=== PATIENT | male | born 1955 | race Caucasian/White ===

== ENCOUNTER 2017-04-07 15:32 | Outpatient (RCR) | payer BC ==
[2016-01-30 15:13] VITALS: Ht 188 cm; Wt 109.8 kg
[2017-03-30 15:10] VITALS: BP 123/75
[2017-03-30 16:03] LABS: PLATELET COUNT, AUTOMATED 103 K/uL (150-450)
[~2017-04-07] VITALS: Ht 188 cm; Wt 109.8 kg
[~2017-04-07 15:32] MED LIST: ALTEPLASE RECOMB 2 MG VIAL IVP PRN; DEXTROSE 5%(*) 100 ML BAG 100 ML IVPB PRN; DOCU-202 PO; ENO100I SC; HEPARIN FLSH (PORT) 500 UN/5ML IVP PRN; LEVO750T27 PO; LEVO750T44 PO; LIDOCAINE/SOD BICARB 8.4% SYR ID PRN; LORA-1455 PO; METR-159 PO; NS(*) 0.9% 100 ML BAG 100 ML IVPB PRN; NS(*) 0.9% 500 ML BAG 500 ML IV PRN; ONDA8TAB94 PO; PER PO; PRED50TA22 PO; WARF-12 PO; WATER STERILE 10 ML VIAL IVP PRN
[2017-04-07 15:44] VITALS: BP 122/74
--- NOTE | 2017-04-07 16:05 | ONC Progress Note - NP.Halsey ---
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 He states he feels well in general and is back to normal activity. He is trying to eat a high-protein diet. He denies any bowel or bladder changes, no pain in the abdomen. He denies fever, chills, night sweats or weight loss. He has no acute concerns today. Problem List (1) B-cell lymphoma of intra-abdominal lymph nodes (2) Thrombocytopenia Oncology History Patient is a 61-year-old male who presented to urgent care clinic with dry heaves and vomiting. He had a CT of abdomen and pelvis done on September 20, 2015, which showed dilated 1.9 cm appendix, keeping with acute appendicitis. There was a ring-enhancing abscess in the central mesentery measuring 4.6 cm. There was also enlarged mesenteric central lymph node measuring 3.7 cm. He had a repeat CT of the abdomen and pelvis done on September 23, 2015 and again it showed distended appendix containing appendicolith, fluid and air bubbles, consistent with acute appendicitis. There were multiple mesenteric lymph nodes with 3.7 cm mesenteric mass, which could represent an infected lymph node, although metastatic disease is not excluded. Repeat CT scan done on October 02, 2015 of the abdomen and pelvis showed the polylobulated 3.7 cm mass in the left of the midline, which may represent an atypical lymph node, but this, however, not changed in size. His repeat CT scan of abdomen and pelvis done on January 15, 2016 showed that the intraperitoneal soft tissue mass is now measuring 5.2 cm in diameter. The patient ended by having exploratory laparotomy with excision of a mesenteric mass done on January 29, 2016 and pathology came back positive for diffuse large B cell non-Hodgkin lymphoma, germinal center type. 2D echocardiogram showed normal left ventricular ejection fraction at 66%. PET- CT scan done on February 17, 2016 did not show any disease or increased activity by PET scan. The prior lobular left mesenteric mass is no longer seen. There were several non-enlarged lymph nodes along the mesenteric root, and they are not FDG avid. Spleen is borderline enlarged, but not FDG avid. Bone marrow aspiration biopsy done on February 19, 2016 came back negative for lymphomatous involvement. The patient started chemotherapy with R-CHOP on March 19, 2016 and completed six cycles of R-CHOP on July 02, 2016. Most recent CT of the abdomen and pelvis completed on 11/26/2016 remain stable from previous. Mesenteric mass is no longer seen. Infiltrative changes in the mesenteric fat are similar to prior examination. Small mesenteric lymph nodes remain stable. Fat stranding around the prostate gland appears to be similar to prior examination. Bilateral inguinal hernias remain stable. Hepatobiliary is negative. Medical History Past Medical History Hypercholesterolemia, not on medication. Past Surgical History 1. Appendectomy done on October 16, 2015 and diagnosis was acute suppurative appendicitis by pathology. 2. Exploratory laparotomy with resection of mesenteric mass done on January 29, 2016. Family History: FH: emphysema MOTHER, , Age:75 FH: thyroid condition MOTHER, , Age:75 Psychosocial History Social History SOCIAL HISTORY The patient is with two sons. 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 He never smoked. He occasionally drinks beer. He denies any abuse of illicit drugs. Smoking History: No Smoking Status: Never Smoker Exposure to Second Hand Smoke?: No Medications and Allergies No Active Prescriptions or Reported Meds Allergies: Coded Allergies: Penicillins (Verified Allergy, Mild, RASH, 01/26/16) Review of System/Physical Exam Review of Systems Constitutional: Denies Appetite/Weight Change, Denies Fever/Chills/Sweating, Denies Recent Infection, Denies Other Cardiovascular: Denies Chest Pain, Denies Orthopnea, Denies Edema, Denies Palpitations, Denies Other Respiratory: Denies Cough, Denies Expectoration, Denies Hemoptysis, Denies Shortness of Breath, Denies Wheezing, Denies Other HEENT: No Tinnitus, No Hearing Problems, No Epistaxis, No Nasal Discharge, No Sore Throat, No Mouth Ulcers, No Other Gastrointestinal: No Nausea, No Vomitting, No Diarrhea, No Constipation, No Heart Burn, No Swallowing Difficulties, No Abdominal Pain, No Other Genitourinary: Denies Hematuria, Denies Dysuria, Denies Nocturia, Denies Other Endocrine: Denies Diabetes, Denies Hot Flashes, Denies Thyroid Issues, Denies Enlarged Lymph Nodes, Denies Other Hematologic: Denies Bruising, Denies Bleeding, Denies Fatigue, Denies Weakness , Denies Other Musculoskeletal: Denies Muscle Pain, Denies Joint Pain, Denies Bone Pain, Denies Other Neurologic: Numbness of Hands (mild and intermittent), Tingling of Hands (mild and intermittent), No Headaches, No Numbness of Feet, No Tingling of Feet, No Convulsions, No Other Psychiatric: No Anxiety, No Depression, No Other Skin: Denies Skin Rash, Denies Lumps, Denies Erythema, Denies Dry Skin, Denies Moist Skin, Denies Other Physical Exam Vital Signs Temperature: 98.5 Pulse: 103 BP Systolic: 123 BP Diastolic: 75 Respiratory Rate: 16 O2 SAT: 93 O2 Delivery: Height (inches) 74.00 Weight lb: 225 Weight oz: Weight Kg (Ric): Pain: 0 General: Stable, Well Developed, Well Nourished, Not In Acute Distress, Not Other HEENT: No Trauma, No Conjunctivitis, No Icterus, No Mucositis, No Oral Thrush, No Sinus Tenderness, No Other Neck: Supple, No Thyromegaly, No Other Lungs: Clear to Auscultation, Not Other Heart: Regular Rate, Regular Rhythm, No Gallops, No Murmurs Abdomen: Soft and Nontender, No Hepatosplenomegaly, No Masses Extremities: No Cyanosis, No Clubbing, No Edema, No Other Lymphadenopathy: No None, No Cervical, No Subclavicular, No Axillary, No Peripheral, No Femoral, No Other Psychiatric: Mood appears normal, Affect appears normal Skin: Skin Rashes, No Bruising, No Purpura, No Moist Desquamation, No Dry Desquamation, No Erythema, No Mild Erythema, No Moderate Erythema, No Severe Erythema, No Induration, No Other Other Port noted in the left upper chest. Diagnostic Studies Diagnostic Studies Laboratory Laboratory Tests 03/30/17 15:15 Laboratory Tests 03/30/17 15:15: White Blood Count 3.3, Red Blood Count 4.67, Hemoglobin 15.8, Hematocrit 44.3, Mean Corpuscular Volume 94.9, Mean Corpuscular Hemoglobin 33.7, Mean Corpuscular Hemoglobin Concent 35.6, Red Cell Distribution Width 14.4, Platelet Count 103, Mean Platelet Volume 8.5, Neutrophils (%) (Auto) 52.1, Lymphocytes (% ) (Auto) 20.5, Monocytes (%) (Auto) 24.7, Eosinophils (%) (Auto) 1.9, Basophils (%) (Auto) 0.8, Nucleated RBC Relative Count (auto) 0.8, Neutrophils # (Auto) 1.7, Lymphocytes # (Auto) 0.7, Monocytes # (Auto) 0.8, Eosinophils # (Auto) 0.1 , Basophils # (Auto) 0.0, Nucleated RBC Absolute Count (auto) 0.03, Peripheral Blood Smear Yes, Sodium Level 138, Potassium Level 3.8, Chloride Level 104, Carbon Dioxide Level 24, Blood Urea Nitrogen 15, Creatinine 1.00, Glomerular Filtration Rate Calc > 60.0, Random Glucose 83, Uric Acid 6.8, Calcium Level 9.0 , Total Bilirubin 1.2, Aspartate Amino Transf (AST/SGOT) 31, Alanine Aminotransferase (ALT/SGPT) 44, Alkaline Phosphatase 62, Lactate Dehydrogenase 463, Total Protein 6.6, Albumin 4.0 Assessment and Plan Assessment & Plan 1. Diffuse large B cell non-Hodgkin lymphoma of the mesenteric lymph nodes, status post excisional resection of the mesenteric mass done January 29, 2016. PET/CT scan did not show any increased uptake, as the mesenteric mass was resected and there was not any avid FDG activity in the PET scan. Bone marrow aspiration biopsy was negative for lymphomatous involvement. Hepatitis serology for hepatitis C and B was negative and left ventricular ejection fraction by 2D echocardiogram was normal at 66%. The patient received six cycles of R-CHOP( rituximab, Adriamycin, cyclophosphamide, vincristine and prednisone) between March 19, 2016 through July 02, 2016. CT of chest, abdomen and pelvis done July 30, 2016 after he finished his chemotherapy did reveal unchanged mesenteric lymph nodes, the largest 1.4 cm with borderline splenomegaly. PET/ CT scan for further evaluation done on August 21, 2016 did not show any abnormal activity in the PET scan, meaning that the patient achieved complete remission. Most recent CT scan on 11/26/2016 showed resolution of mesenteric mass and stable small mesenteric lymph nodes. Platelet count is 103,000 today, which is stable. He is doing well clinically and has no evidence of recurrent disease. He will retrun to the clinic for follow up in 4 months with CBC, CMP and LDH. He will have a repeat CT scan of C/A/P with IV contrast before next visit. He will flush port every 6 weeks. 2. Thrombocytopenia. This is mild, chronic ad intermittent and it could be autoimmune. Given mild grade of thrombocytopenia observation is adequate. 3. Hyperbilirubinemia. Of unknown significant. Total bilirubin is normal today. 4. Hypercholesterolemia, on treatment. PLAN 1. Continue surveillance. 2. Patient to return to the office for follow up in 4 months with CBC, CMP and LDH. 3. Port flushes every 4 [address] scan C/A/P before next visit. 5. Patient to contact the office for any problems or concerns. I personally spent a total of 25 minutes. Of that 15 minutes was counseling/ coordination of patient's care. See my note above for details. JACE DALEY MD Apr 07, 2017 16:01
== END 2017-05-27 09:11 | disposition home or self-care (01) ==
LOC: ONC 15:32
PROVIDERS: ATTEND Internal Medicine Hematology
DX: Z85.72 Personal history of non-Hodgkin lymphomas (principal); Z92.21 Personal history of antineoplastic chemotherapy; D69.6 Thrombocytopenia, unspecified; E80.6 Other disorders of bilirubin metabolism; E78.00 Pure hypercholesterolemia, unspecified
CPT/HCPCS: 36591; 82040; 82247; 82310; 82374; 82435; 82565; 82947; 83615; 84075; 84132; 84155; 84295; 84450; 84460; 84520; 84550; 85025; 99212

== ENCOUNTER 2017-08-12 10:00 | Outpatient (RCR) | payer BC ==
[2016-01-30 15:13] VITALS: Wt 113.3 kg
[2017-06-03] MEDS: LIDOCAINE/SOD BICARB 8.4% SYR ID PRN (15:06)
[2017-06-03] MEDS: HEPARIN FLSH (PORT) 500 UN/5ML IVP PRN (15:06)
[2017-08-05 12:10] VITALS: BP 125/74
[2017-08-05 12:35] LABS: PLATELET COUNT, AUTOMATED 122 K/uL (150-450)
[2017-08-05] MEDS: LIDOCAINE/SOD BICARB 8.4% SYR ID PRN (13:00)
[2017-08-05] MEDS: HEPARIN FLSH (PORT) 500 UN/5ML IVP PRN (14:52)
--- NOTE | 2017-08-05 15:07 | RADIOLOGY IMAGING REPORT ---
FACILITY: [facility] [place]IENT NAME: López Monae : 1955 MR: [id number] V: [id number] EXAM DATE: ORDERING PHYSICIAN: JEROME PINZON TECHNOLOGIST: [facility] Patient: López Monae : 1955 Visit/Account:[id number] Date of Sevice: 08/05/2017 CHEST/AB/PELV W/CONTRAST HISTORY: B-cell lymphoma follow-up ADDITIONAL HISTORY: None. TECHNIQUE: Contiguous axial images acquired through the chest abdomen and pelvis with IV contrast. C oronal and sagittal reformatting was also performed. Dose Lowering Technique One of the following dose optimization techniques was utilized in the performance of this exam: Autom ated exposure control; adjustment of the mA and/or kV according to the patient's size; or use of an i terative reconstruction technique. Specific details can be referenced in the facility's radiology C T exam operational policy. Contrast: 100 mL of Isovue-370 COMPARISON: CT abdomen pelvis November 26, [address] chest abdomen and pelvis July 30, 2016 November 26, 2016 FINDINGS: CHEST: Lungs/Pleura: There is a small amount of pleural parenchymal scarring lateral aspect right upper lob e unchanged when compared the prior study. Mild by basilar scarring also unchanged Mediastinum/lymph nodes: Small nonspecific mediastinal and hilar lymph nodes remain unchanged. Heart/vessels: Negative. Bones/soft tissues: Negative ABDOMEN AND PELVIS: Hepatobiliary: Negative. Spleen: Spleen is slightly decreased in size now measuring 4.5 x 13.1 x 12.2 cm as opposed to 5 x 13 .5 x 12.5 cm Pancreas: Negative. Adrenals: Negative. Kidneys ureters and bladder : Left renal cyst unchanged Genitalia: Negative. GI: Mild diverticulosis of the left-sided colon although no CT evidence of acute diverticulitis Vessels/spaces/nodes: There is an umbilical hernia containing a knuckle of nonobstructed small bowel . There is a left inguinal hernia containing nonobstructed sigmoid colon and right inguinal hernia c ontaining fat. Haziness around the root of the mesentery is unchanged.. Lymph nodes along the superior mesenteric vascular pedicle are also unchanged. A medical collections representative ly mph node measures 1.3 x 1 cm similar to the prior study. A medical collections representative aortocaval lymph node travsi ures 10 by 8 mm similar to the prior study as well Bones/soft tissues: No aggressive appearing bone lesions are seen. There are spondylotic changes se en throughout the thoracolumbar spine Additional findings: None pertinent. IMPRESSION: Spleen is slightly decreased in size when compared the prior study now measuring 13.1 x 12.2 x 4.5 cm as opposed to 13.5 x 12.5 x 5 cm. Stable mesenteric and aortocaval lymph nodes Small mediastinal and hilar lymph nodes have remained stable Umbilical hernia containing a knuckle of nonobstructed small bowel Left inguinal hernia containing nonobstructed sigmoid colon Right inguinal hernia containing fat. Additional chronic findings as described above Report Dictated By: Linda Spence MD at 08/05/2017 2:00 PM Report E-Signed By: Linda Spence MD at 08/05/2017 3:03 PM WSN:[id number]
[~2017-08-12 10:00] MED LIST changes: -HEPARIN FLSH (PORT) 500 UN/5ML IVP PRN; +IOPAMIDOL 76% 100 ML INFUS BTL 100 ML ONE; -LIDOCAINE/SOD BICARB 8.4% SYR ID PRN; +NS 0.9% 150 ML BAG 150 ML ONE
[2017-08-12 10:01] VITALS: BP 135/75
--- NOTE | 2017-08-12 16:50 | ONCOLOGY FOLLOW UP NOTE ---
EVENT DATE: August 12, 2017 DIAGNOSES 1. Diffuse large B cell non-Hodgkin lymphoma of mesenteric mass of mesenteric lymph nodes. 2. Hypercholesterolemia. CHIEF COMPLAINT The patient is here today for followup of his diffuse large B cell non-Hodgkin lymphoma of the mesenteric lymph nodes. ONCOLOGY HISTORY The patient is a 61-year-old male who presented recently with dry heaves and vomiting, and the patient was seen by Urgent Care, who referred him to the emergency department. He had a CT of abdomen and pelvis done on September 20, 2015, which showed dilated 1.9 cm appendix, keeping with acute appendicitis. There was a ring-enhancing abscess in the central mesentery measuring 4.6 cm. There was also enlarged mesenteric central lymph node measuring 3.7 cm. He had a repeat CT of the abdomen and pelvis done on September 23, 2015 and again it showed distended appendix containing appendicolith, fluid and air bubbles, consistent with acute appendicitis. There were multiple mesenteric lymph nodes with 3.7 cm mesenteric mass, which could represent an infected lymph node, although metastatic disease is not excluded. Repeat CT scan done on October 02, 2015 of the abdomen and pelvis showed the polylobulated 3.7 cm mass in the left of the midline, which may represent an atypical lymph node, but this, however, not changed in size. His repeat CT scan of abdomen and pelvis done on January 15, 2016 showed that the intraperitoneal soft tissue mass is now measuring 5.2 cm in diameter. The patient ended by having exploratory laparotomy with excision of a mesenteric mass done on January 29, 2016 and pathology came back positive for diffuse large B cell non-Hodgkin lymphoma, germinal center type. 2D echocardiogram showed normal left ventricular ejection fraction at 66%. PET- CT scan done on February 17, 2016 did not show any disease or increased activity by PET scan. The prior lobular left mesenteric mass is no longer seen. There were several non-enlarged lymph nodes along the mesenteric root, and they are not FDG avid. Spleen is borderline enlarged, but not FDG avid. Bone marrow aspiration biopsy done on February 19, 2016 came back negative for lymphomatous involvement. The patient started chemotherapy with R-CHOP on March 19, 2016. The patient completed six cycles of R-CHOP on July 02, 2016. HISTORY OF PRESENT ILLNESS The patient is here today for followup of his diffuse large B cell lymphoma of the mesenteric lymph nodes. Patient is doing very well currently and he is totally asymptomatic. PAST MEDICAL HISTORY Hypercholesterolemia, not on medication. PAST SURGICAL HISTORY 1. Appendectomy done on October 16, 2015 and diagnosis was acute suppurative appendicitis by pathology. 2. Exploratory laparotomy with resection of mesenteric mass done on January 29, 2016. FAMILY HISTORY Negative for cancer or blood diseases. SOCIAL HISTORY The patient is with two sons. 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 He never smoked. He occasionally drinks beer. He denies any abuse of illicit drugs. CURRENT MEDICATIONS 1. Zofran 8 mg orally disintegrating tablets q.8h. p.r.n. for nausea and vomiting. 2. Compazine 10 mg q.6h. p.r.n. for nausea and vomiting. 3. Ativan 1 mg q.6h. p.r.n. for nausea and vomiting. 4. Protonix 40 mg daily. ALLERGIES PENICILLIN, which causes hives. REVIEW OF SYSTEMS CONSTITUTIONAL: No appetite or weight change. No fever, chills or sweating. No recent infection. HEENT: Ears: No tinnitus or hearing problem. Nose: No nasal discharge or epistaxis. Throat: No sore throat or mouth ulcers. Eyes: No diplopia or visual changes. RESPIRATORY: No shortness of breath. No cough, expectoration or hemoptysis. CARDIOVASCULAR: No chest pain, orthopnea, or paroxysmal nocturnal dyspnea (PND) . No edema. No palpitations. GASTROINTESTINAL: No nausea or vomiting. No diarrhea or constipation. No change in bowel movements. No heartburn or swallowing difficulties. No abdominal pain. No jaundice. No hematemesis, melena or rectal bleeding. GENITOURINARY: No hematuria or dysuria. MUSCULOSKELETAL: No pain in the muscles, joints or bones. NEUROLOGICAL: No tingling or numbness in the hands or feet. No headaches or convulsions. HEMATOLOGIC/LYMPHATIC: No bleeding or easy bruising. No weakness or fatigue. No enlarged lymph nodes. SKIN: No skin rash or lumps. PSYCHIATRIC: No anxiety or depression. PHYSICAL EXAMINATION GENERAL: Looks stable. Well-developed, well-nourished, and in no acute distress. VITAL SIGNS: Blood pressure 135/75, pulse 58 per minute, respirations 16 per minute, temperature 96.1, pulse oximetry 97% on room air. HEENT: Head: Atraumatic. No sinus tenderness to palpation. Eyes: No icterus or conjunctivitis. Mouth and throat: No oral thrush or mucositis. NECK: Supple. No cervical or supraclavicular lymphadenopathy. LUNGS: Clear to auscultation and percussion bilaterally. HEART: Regular rate and rhythm. No gallops, murmurs, clicks or rubs. ABDOMEN: Soft and lax. The scar of recent surgery is noted. EXTREMITIES: No cyanosis, clubbing or edema. LYMPHATICS: No peripheral lymphadenopathy. NEUROLOGICAL: Conscious, alert and oriented times three. No focal motor or sensory deficits. PSYCHIATRIC: Mood and affect appear normal. SKIN: No skin rash, bruise or purpuric eruption. DIAGNOSTIC DATA CBC showed white count 6.8, hemoglobin 17.2, hematocrit 48%, platelets 122,000. Chem panel was totally normal. CT chest, abdomen and pelvis showed stable lymph node without any progression. ASSESSMENT 1. Diffuse large B cell non-Hodgkin lymphoma of the mesenteric lymph nodes, status post excisional resection of the mesenteric mass done January 29, 2016. PET/CT scan did not show any increased uptake, as the mesenteric mass was already resected and there was not any avid activity in the PET scan. Bone marrow aspiration biopsy was negative for lymphomatous involvement. Hepatitis serology for hepatitis C and B came back negative and left ventricular ejection fraction by echocardiogram was normal at 66%. The patient received six cycles of R-CHOP with rituximab, Adriamycin, cyclophosphamide, vincristine and prednisone between March 19, 2016 through July 02, 2016. CT of chest, abdomen and pelvis done July 30, 2016 after chemotherapy showed nonsignificant lymph nodes up to 1.4 cm, which are mesenteric lymph nodes. PET/CT scan August 21, 2016 did not show any abnormal activity in the PET scan. CT chest, abdomen and pelvis done recently, July 2017 showed stable lymph nodes without any progression. I believe the patient is currently in complete remission. I am planning to continue followup. I will see him again in three months with CBC, chem panel, LDH and uric acid. 2. Hypercholesterolemia on treatment. PLAN 1. Continue followup. 2. Patient to return in three months with CBC, chem panel, LDH, uric acid. 3. Patient to contact us for any new concerns or complaints. DUNG
== END 2017-09-01 ==
LOC: ONC 10:00
PROVIDERS: ATTEND Internal Medicine Hematology
DX: Z85.72 Personal history of non-Hodgkin lymphomas (principal); E78.00 Pure hypercholesterolemia, unspecified; Z92.21 Personal history of antineoplastic chemotherapy
CPT/HCPCS: 36591; 71260; 74177; 83615; 84153; 85025; 96523; 99212; J1642; Q9967; 82040; 82247; 82310; 82374; 82435; 82565; 82947; 84075; 84132; 84155; 84295; 84450; 84460; 84520

== ENCOUNTER 2017-11-04 10:02 | Outpatient (RCR) | payer BC ==
[2016-01-30 15:13] VITALS: BMI 28.4
[~2017-11-04 10:02] MED LIST changes: +HEPARIN FLSH (PORT) 500 UN/5ML IVP PRN; -IOPAMIDOL 76% 100 ML INFUS BTL 100 ML ONE; +LIDOCAINE/SOD BICARB 8.4% SYR ID PRN; -NS 0.9% 150 ML BAG 150 ML ONE; +WATER FOR INJ,STERILE 20 ML IVP PRN; -WATER STERILE 10 ML VIAL IVP PRN
[2017-11-04 10:43] LABS: PLATELET COUNT, AUTOMATED 110 K/uL (150-450)
[2017-11-04 13:15] VITALS: BP 136/84
--- NOTE | 2017-11-04 17:46 | Oncology Progress Note ---
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 Oncology History Oncology History: on September 20, 2015,CT of abdomen and pelvis done which showed dilated 1.9 cm appendix, keeping with acute appendicitis. There was a ring-enhancing abscess in the central mesentery measuring 4.6 cm. There was also enlarged mesenteric central lymph node measuring 3.7 cm. He had a repeat CT of the abdomen and pelvis done on September 23, 2015 and again it showed distended appendix containing appendicolith, fluid and air bubbles, consistent with acute appendicitis. There were multiple mesenteric lymph nodes with 3.7 cm mesenteric mass, which could represent an infected lymph node, although metastatic disease is not excluded. Repeat CT scan done on October 02, 2015 of the abdomen and pelvis showed the polylobulated 3.7 cm mass in the left of the midline, which may represent an atypical lymph node, but this, however, not changed in size. His repeat CT scan of abdomen and pelvis done on January 15, 2016 showed that the intraperitoneal soft tissue mass is now measuring 5.2 cm in diameter. The patient ended by having exploratory laparotomy with excision of a mesenteric mass done on January 29, 2016 and pathology came back positive for diffuse large B cell non-Hodgkin lymphoma, germinal center type. - Bone marrow aspiration biopsy done on February 19, 2016 came back negative for lymphomatous involvement. Treatment Treatment: on 07/02/2016. [facility] - March 19, 2016. R-CHOP Cycle #1 - 04/19/2016 R-CHOP Cycle #2. - 04/30/16 R-CHOP, cycle #3. - 05/27/16 R-CHOP. cyycle #4. - 06/11/16 R-CHOP. cycle #5. -07/02/16 R-CHOP cycle 6 -08/06/16 PET-CT scan. - PET-CT scan done on August 19, 2016 did not show any evidence of abnormal hypermetabolism. - 08/26/16 The patient to return in three months with CBC, chem panel, LDH, uric acid and CT of abdomen and pelvis with IV and oral contrast. Plan: four to six cycles of R-CHOP with rituximab, Adriamycin, cyclophosphamide, Vincristine and prednisone. With Neulasta 6mg SC after eac cycle. HPI HPI: Mr. Dov Dawn is a 62-year-old male who presents here today for his follow-up management surveillance for diffuse Large B-cell non-Hodgkin lymphoma of the mesenteric lymph nodes. Bone marrow aspiration biopsy done on February 19, 2016 came back negative for lymphomatous involvement. s/p completion 6 cycles RCHOP on 07/02/2016 with minor toxicities. - PET-CT scan done on August 19, 2016 did not show any evidence of abnormal hypermetabolism. Patient has since then been on active surveillnce every 3 months with no symptoms of disease presentation. He reports being in his usual state of health. He is doing very well and reports no issues. Denies any fevers, chills, night sweats, palpable Lymph nodes or tender nodes. No N/V. no changes in bowel or bladder pattern. Living Conditions: Lives with . [facility] Patient History: FH: emphysema MOTHER, , Age:75 FH: thyroid condition MOTHER, , Age:75 Social/Occupational History Social History: Social History This is a 62 Yr old White male, he is M and has [] Children Hx Smoking: No Smoking Status: Never Smoker Exposure to Second Hand Smoke?: No Allergies & Medications Allergies: Coded Allergies: Penicillins (Verified Allergy, Mild, RASH, 01/26/16) Home Meds No Active Prescriptions or Reported Meds Review of Systems Constitution: Positive for Fever/Chills/Sweating, Positive for Recent Infection HEENT: NOSE: Nasal Discharge, THROAT: Sore Throat, OTHER Respiratory: No Cough, No Expectoration, No Hemoptysis, No Shortness of Breath , No OTHER Cardiovascular: No Chest Pain, No Orthopnea, No Edema, No Palpitations, No OTHER Gastrointestinal: No Nausea, No Vomitting, No Diarrehea, No Constipation, No Heart Burn, No Swallowing Difficulties, No Abdominal Pain, No Other Gentiourinary: No Hematuria, No Dysuria, No Nocturia, No Other Musculoskeletal: No Muscle Pain, No Joint Pain, No Bone Pain, No Other Hematological: No Bleeding, No Weakness, No Enlarged Lyph Nodes, No Bruising, No Fatigue, No Other Skin: No Skin Rash, No Lumps, No Erythema, No Dry Skin, No Moist Skin, No Other Psychiatric: No Anxiety, No Depression, No Other Vital Signs Vital Signs Temperature: 96.1 Pulse: 58 BP Systolic: 135 BP Diastolic: 75 Respiratory Rate: 16 O2 SAT: 97 O2 Delivery: Height (feet) 6 Height (inches) 74.00 Weight lb: 225 Weight oz: Weight Kg (Ric): Pain: 0 Physical Exam General: Looks Stable, Well Developed, Well Nourished, Other HEENT: HEAD:Atraumatic Neck: Supple Lungs: Clear to Auscultation Heart: Regular Rate and Rhythm Abdomen: Soft and Nontender Extremities: No Cyanosis, No Clubbing, No Edema, No Other Lymphatics: No Peripheral Lymphadenopathy, No Other Psychiatric: Mood appears normal, Affect appears normal Skin: No Skin Rashes, No Bruising, No Purpura, No Moist Desquamation, No Dry Desquamation, No Errythema, No Mild Errythema, No Moderate Errythema, No Severe Errythema, No Induration, No Other Breast: No No Masses, No No Nipple Discharge, No No Skin Changes, No Other Assessment and Plan Assessment and Plan: 1. Diffuse large B cell non-Hodgkin lymphoma of the mesenteric lymph nodes, status post excisional resection of the mesenteric mass done January 29, 2016. PET/CT scan did not show any increased uptake, as the mesenteric mass was already resected and there was not any avid activity in the PET scan. Bone marrow aspiration biopsy was negative for lymphomatous involvement. s/p completion 6 cycles RCHOP on 07/02/2016 with minor toxicities. 2. Thrombocytopenia, Platet count today is 110K. Denies bleeding, no easy bruising. no headaches. dalton contine to monitor counts closely. Instrcuted to call clinic or go to ER if any active bleeding, easy bruising immediately. 3. Preventive: PSA 11/04/17 is 1.10; 08/05/17 is 0.93; 11/26/16 is 0.89. PSA slighty trending up. Will contnue to monitor closely encouraged to f/u with PCP. CHRONIC 2. Hypercholesterolemia on treatment 3. Hx DVT of Left Lower extremity in 2008. Reports no pain, no swelling. He keeps active working regular shift, and exercises 3-4 times per day. encourage to contne wearing Compression stockings and to move and do leg exercises while he is on aeroplane or long car travels. PLAN 1. Continue followup. 2. Patient to return in three months with CBC, chem panel, LDH, uric acid. 3. Patieent Instructed to contact MD/DEISY if any long trips planned involving long periods of sedentary status. 4. Patient enocurage to contact PCP or Dr. Fuentes in regards to colonoscopy, he never had one at 62years. He informs me that he has had enogh PEt scans. 5. Patient to contact us for any new concerns or complaints. TIME SPENT: 15minutes 10 > minutes includes but not limited to discussion, counselling and co-ordination~ of care. Discussion with other health care providers, record review, review of lab work, diagnostic tests. Plan discussed extensively with patient. All the questions answered today. Thank you for the opportunity to be involved in the care of Mr. Dov Dawn Billing Level: Return visit 3 CC Copies to: JEROME PINZON MD-GERALDO LAL, ONC Nov 04, 2017 09:13
== END 2017-12-02 09:57 | disposition home or self-care (01) ==
LOC: SPU 10:02
PROVIDERS: ATTEND Internal Medicine Hematology
DX: C83.33 Diffuse large B-cell lymphoma, intra-abdominal lymph nodes (principal); Z12.5 Encounter for screening for malignant neoplasm of prostate; Z88.0 Allergy status to penicillin; Z86.718 Personal history of other venous thrombosis and embolism; D69.6 Thrombocytopenia, unspecified
CPT/HCPCS: 36591; 83615; 84153; 84550; 85025; 99213; J1642; 82040; 82247; 82310; 82374; 82435; 82565; 82947; 84075; 84132; 84155; 84295; 84450; 84460; 84520

== ENCOUNTER 2018-02-10 13:24 | Outpatient (RCR) | payer BC ==
[2016-01-30 15:13] VITALS: Wt 112.9 kg
[2018-01-27 08:43] VITALS: BP 132/86
[2018-01-27] MEDS: HEPARIN FLSH (PORT) 500 UN/5ML IVP PRN (08:46)
[2018-01-27] MEDS: LIDOCAINE/SOD BICARB 8.4% SYR ID PRN (08:46)
[2018-01-27 08:47] LABS: PLATELET COUNT, AUTOMATED 120 K/uL (150-450)
--- NOTE | 2018-01-27 16:49 | ONCOLOGY FOLLOW UP NOTE ---
EVENT DATE: January 27, 2018 DIAGNOSES 1. Diffuse large B-cell non-Hodgkin lymphoma of mesenteric mass of mesenteric lymph nodes. 2. Hypercholesterolemia. CHIEF COMPLAINT The patient is here today for followup of his diffuse large B-cell non-Hodgkin lymphoma of the mesenteric lymph nodes. ONCOLOGY HISTORY The patient is a 62-year-old male who presented recently with dry heaves and vomiting, and the patient was seen by Urgent Care, who referred him to the Emergency Department. He had a CT of abdomen and pelvis done on September 20, 2015, which showed dilated 1.9 cm appendix, keeping with acute appendicitis. There was a ring-enhancing abscess in the central mesentery measuring 4.6 cm. There was also enlarged mesenteric central lymph node measuring 3.7 cm. He had a repeat CT of the abdomen and pelvis done on September 23, 2015, and again it showed distended appendix containing appendicolith, fluid, and air bubbles, consistent with acute appendicitis. There were multiple mesenteric lymph nodes with 3.7 cm mesenteric mass, which could represent an infected lymph node, although metastatic disease is not excluded. Repeat CT scan done on October 02, 2015, of the abdomen and pelvis showed the polylobulated 3.7 cm mass in the left of the midline, which may represent an atypical lymph node, but this, however, has not changed in size. His repeat CT scan of abdomen and pelvis done on January 15, 2016, showed that the intraperitoneal soft tissue mass is now measuring 5.2 cm in diameter. The patient ended by having exploratory laparotomy with excision of a mesenteric mass done on January 29, 2016, and pathology came back positive for diffuse large B-cell non-Hodgkin lymphoma, germinal center type. 2D echocardiogram showed normal left ventricular ejection fraction at 66%. PET/CT scan done on February 17, 2016, did not show any disease or increased activity by PET scan. The prior lobular left mesenteric mass was no longer seen. There were several non-enlarged lymph nodes along the mesenteric root, and they were not FDG avid. Spleen is borderline enlarged, but not FDG avid. Bone marrow aspiration biopsy done on February 19, 2016, came back negative for lymphomatous involvement. The patient started chemotherapy with R-CHOP on March 19, 2016. The patient completed six cycles of R-CHOP on July 02, 2016. HISTORY OF PRESENT ILLNESS The patient is here today for followup of his diffuse large B-cell non-Hodgkin lymphoma of the mesenteric lymph nodes. He is doing find currently. He denies any complaints. He denies any B symptoms. PAST MEDICAL HISTORY Hypercholesterolemia, not on medication. PAST SURGICAL HISTORY 1. Appendectomy done on October 16, 2015, and diagnosis was acute suppurative appendicitis by pathology. 2. Exploratory laparotomy with resection of mesenteric mass done on January 29, 2016. FAMILY HISTORY Negative for cancer or blood diseases. SOCIAL HISTORY The patient is with two sons. 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 He never smoked. He occasionally drinks beer. He denies any abuse of illicit drugs. CURRENT MEDICATIONS 1. Zofran 8 mg orally disintegrating tablets q.8h. p.r.n. for nausea and vomiting. 2. Compazine 10 mg q.6h. p.r.n. for nausea and vomiting. 3. Ativan 1 mg q.6h. p.r.n. for nausea and vomiting. 4. Protonix 40 mg daily. ALLERGIES PENICILLIN which causes hives. REVIEW OF SYSTEMS CONSTITUTIONAL: No appetite or weight change. No fever, chills, or sweating. No recent infection. HEENT: Ears: No tinnitus or hearing problem. Nose: No nasal discharge or epistaxis. Throat: No sore throat or mouth ulcers. Eyes: No diplopia or visual changes. RESPIRATORY: No shortness of breath. No cough, expectoration, or hemoptysis. CARDIOVASCULAR: No chest pain, orthopnea, or paroxysmal nocturnal dyspnea (PND). No edema. No palpitations. GASTROINTESTINAL: No nausea or vomiting. No diarrhea or constipation. No change in bowel movements. No heartburn or swallowing difficulties. No abdominal pain. No jaundice. No hematemesis, melena, or rectal bleeding. GENITOURINARY: No hematuria or dysuria. MUSCULOSKELETAL: No pain in the muscles, joints, or bones. NEUROLOGICAL: No tingling or numbness in the hands or feet. No headaches or convulsions. HEMATOLOGIC/LYMPHATIC: No bleeding or easy bruising. No weakness or fatigue. No enlarged lymph nodes. SKIN: No skin rash or lumps. PSYCHIATRIC: No anxiety or depression. PHYSICAL EXAMINATION GENERAL: Looks stable. Well developed, well nourished, and in no acute distress. VITAL SIGNS: Blood pressure 132/86, pulse 72 per minute, respirations 18 per minute, temperature 98.1, pulse ox 95% on room air. HEENT: Head: Atraumatic. No sinus tenderness to palpation. Eyes: No icterus or conjunctivitis. Mouth and throat: No oral thrush or mucositis. NECK: Supple. No cervical or supraclavicular lymphadenopathy. LUNGS: Clear to auscultation and percussion bilaterally. HEART: Regular rate and rhythm. No gallops, murmurs, clicks, or rubs. ABDOMEN: Soft and lax. The scar of recent surgery is noted. EXTREMITIES: No cyanosis, clubbing, or edema. LYMPHATICS: No peripheral lymphadenopathy. NEUROLOGICAL: Conscious, alert, and oriented times three. No focal motor or sensory deficits. PSYCHIATRIC: Mood and affect appear normal. SKIN: No skin rash, bruise, or purpuric eruption. DIAGNOSTIC DATA CBC showed white count 5000, hemoglobin 17.8, hematocrit 95.9, platelets 120,000. Chem panel totally normal except chloride 110, blood sugar 120. ASSESSMENT 1. Diffuse large B-cell non-Hodgkin lymphoma of the mesenteric lymph nodes, status post excisional resection of the mesenteric mass done January 29, 2016. PET/CT scan did not show any increased uptake as the mesenteric mass was already resected, and there was not any avid activity in the PET scan. Bone marrow aspiration biopsy was negative for lymphomatous involvement. Hepatitis serology for hepatitis C and B came back negative, and the left ventricular ejection fraction by echocardiogram was normal at 66%. The patient received six cycles of R-CHOP with rituximab, Adriamycin, cyclophosphamide, vincristine, and prednisone between March 19, 2016, through July 02, 2016. CT of chest, abdomen, and pelvis done July 30, 2016, after chemotherapy showed nonsignificant lymph nodes up to 1.4 cm, which was a mesenteric lymph node. PET/CT scan August 21, 2016, did not show any abnormal activity on the PET scan. CT chest, abdomen, and pelvis done July 2017 showed stable lymph nodes without any progression. I am planning to repeat his CT chest, abdomen, and pelvis this time again to follow this lymph node. I will see him in three months with CBC, chemistry panel, LDH, and uric acid. 2. Hypercholesterolemia, on treatment. PLAN 1. CT chest, abdomen, and pelvis with IV and oral contrast. 2. Patient to return in three months with CBC, chem panel, LDH, uric acid. 3. Patient to contact us for any new concerns or complaints. [facility]
[~2018-02-10 13:24] MED LIST changes: -HEPARIN FLSH (PORT) 500 UN/5ML IVP PRN; -LIDOCAINE/SOD BICARB 8.4% SYR ID PRN; -METR-159 PO; +METR250T8 PO
[2018-02-10 13:27] VITALS: BP 143/87
[2018-02-10] MEDS: HEPARIN FLSH (PORT) 500 UN/5ML IVP PRN (13:39)
[2018-02-10] MEDS: LIDOCAINE/SOD BICARB 8.4% SYR ID PRN (13:39)
[2018-02-10] MEDS ORDERED: IOPAMIDOL 76% 75 ML INFUS BTL 75 ML ONE (13:56)
[2018-02-10] MEDS ORDERED: IOPAMIDOL 76% 50 ML INFUS BTL 50 ML ONE (14:07)
--- NOTE | 2018-02-10 15:55 | RADIOLOGY IMAGING REPORT ---
FACILITY: [facility] [place] PATIENT NAME: López Monae : 1955 MR: [id number] V: [id number] EXAM DATE: ORDERING PHYSICIAN: JEROME PINZON TECHNOLOGIST: Location: Patient: López Monae : 1955 Visit/Account:[id number] Date of Sevice: 02/10/2018 CT chest with IV contrast CT abdomen with IV contrast CT pelvis with IV contrast History: B cell lymphoma follow-up COMPARISON STUDIES: CT chest abdomen and pelvis 08/05/2017. TECHNIQUE: Axial CT images were obtained through the chest, abdomen and pelvis following the admini stration of nonionic iodinated IV contrast. Reformatted coronal and sagittal images were also obtaine d. Contrast used: Isovue 370, 100 ml One of the following dose optimization techniques was utilized in the performance of this exam: Autom ated exposure control; adjustment of the mA and/or kV according to the patient's size; or use of an i terative reconstruction technique. Specific details can be referenced in the facility's radiology C T exam operational policy. FINDINGS: CT Chest- Lower neck: Negative Lungs and pleura: Negative Mediastinum and drea: Small mediastinal lymph nodes are unchanged. Right hilar 1.7 cm lymph node is stable. Left hilar 14 mm lymph node is unchanged. Heart, aorta, and great vessels: Left central venous catheter distal tip is in the proximal SVC. Bones: Negative Chest wall: Negative Chest lymph node assessment: There are no enlarged axillary lymph nodes. CT Abdomen and Pelvis- Liver: Normal. Spleen: Spleen is borderline enlarged, measuring 12.6 x 4.6 x 13 cm, unchanged. Gallbladder and bile ducts: Gallbladder is present. Bile ducts are normal caliber. Pancreas: negative Adrenal glands: negative Kidneys: negative Pelvic structures: Partially filled bladder has a thickened wall, unchanged. Mild left hydrocele. Bowel and abdominal wall: Left inguinal hernia contains nonobstructed left transverse colon and oment um. Ileocecal junction is located in the right midabdomen. Prior appendectomy. Small bowel is unre markable. Mesenteries: Mild mesenteric fat haziness is unchanged. Ascites: None Vessels: negative Musculoskeletal: Severe lumbosacral degenerative disc change. Body wall: An umbilical hernia contains nonobstructed small bowel, unchanged. A right inguinal herni a contains omentum, unchanged. Abd/Pelvis lymph node assessment: Mesenteric lymph nodes remain prominent. Left mid abdominal mesenteric lymph node, 18 x 12 mm, image 414, unchanged. Aortocaval lymph node, 11 x 8 mm, image 47, unchanged. Left external iliac lymph node, 12 mm, unchanged. Bilateral inguinal lymph nodes are stable. IMPRESSION: No significant change from 07/2017. 1. Continued stability of mesenteric, aortocaval, and hilar lymph nodes. 2. Borderline splenomegaly. 3. Left inguinal hernia containing nonobstructed small bowel, umbilical hernia containing nonobstruc jeremias small bowel, and a right inguinal hernia containing omentum. 4. Other chronic findings as described above. Report Dictated By: Shauna Young MD at 02/10/2018 3:23 PM Report E-Signed By: Shauna Young MD at 02/10/2018 3:51 PM WSN:[id number]
[2018-04-21] MEDS: HEPARIN FLSH (PORT) 500 UN/5ML IVP PRN (12:51)
[2018-04-21] MEDS: LIDOCAINE/SOD BICARB 8.4% SYR ID PRN (12:51)
[2018-04-21 12:52] VITALS: BP 133/85
[2018-04-21 12:53] LABS: PLATELET COUNT, AUTOMATED 122 K/uL (150-450)
== END 2018-04-27 ==
LOC: SPU 13:24
PROVIDERS: ATTEND Internal Medicine Hematology
DX: C83.33 Diffuse large B-cell lymphoma, intra-abdominal lymph nodes (principal); E78.00 Pure hypercholesterolemia, unspecified; Z92.21 Personal history of antineoplastic chemotherapy; Z79.899 Other long term (current) drug therapy
CPT/HCPCS: 36591; 71260; 74177; 83615; 84550; 85025; 99212; J1642; Q9967; 82040; 82247; 82310; 82374; 82435; 82565; 82947; 84075; 84132; 84155; 84295; 84450; 84460; 84520

== ENCOUNTER 2018-04-27 00:28 | Observation (INO) | payer BC ==
[2018-04-27] VITALS (15 sets, daily range): BP systolic 116–153; BP diastolic 70–98
[~2018-04-27] VITALS: Ht 185.4 cm; Wt 109.3 kg
[~2018-04-27 00:28] MED LIST changes: -ALTEPLASE RECOMB 2 MG VIAL IVP PRN; -DEXTROSE 5%(*) 100 ML BAG 100 ML IVPB PRN; -NS(*) 0.9% 100 ML BAG 100 ML IVPB PRN; -NS(*) 0.9% 500 ML BAG 500 ML IV PRN; -WATER FOR INJ,STERILE 20 ML IVP PRN
[2018-04-27] MEDS ORDERED: NORMOSOL R SOLN(*) 1000 ML BAG 1,000 ML IV PRN (06:45)
[2018-04-27] MEDS ORDERED: GENTAMICIN(*) 80 MG/2 ML VIAL 160 MG in NS(*) 0.9% 100 ML BAG 100 ML IVPB ONE (06:45)
[2018-04-27] MEDS ORDERED: FAMOTIDINE 20 MG TAB PO ONE (06:45)
[2018-04-27] MEDS ORDERED: MIDAZOLAM 2 MG/2 ML VIAL IVP PRN (06:45)
[2018-04-27] MEDS ORDERED: LIDOCAINE/SOD BICARB 8.4% SYR ID ONE (06:45)
[2018-04-27] MEDS ORDERED: fentaNYL CITR 100 MCG/2 ML AMP ONE ×5 (07:26→10:53)
[2018-04-27] MEDS ORDERED: ONDANSETRON 4 MG/2 ML VIAL ONE (07:29)
[2018-04-27] MEDS ORDERED: DEXAMETHASONE SOD PHOS 10MG/ML ONE (07:29)
[2018-04-27] MEDS ORDERED: PROPOFOL EMUL(*) 10MG/ML 20 ML 20 ML ONE (07:29)
[2018-04-27] MEDS ORDERED: KETAMINE HCL 200 MG/20 ML MDV ONE (07:29)
[2018-04-27] MEDS ORDERED: LIDOCAINE MPF 1% 5 ML VIAL ONE (07:29)
[2018-04-27] MEDS ORDERED: SUGAMMADEX SOD 200 MG/2 ML SDV ONE (07:33)
[2018-04-27] MEDS ORDERED: ceFAZolin(*) 1 GM VIAL 1 GM, GENTAMICIN(*) 80 MG/2 ML VIAL 60 MG in NS 0.9% IRRIGATION ... IR ONE ×2 (07:40)
[2018-04-27] MEDS ORDERED: ROCURONIUM BROM 10 MG/ML 10 ML ONE (07:43)
[2018-04-27] MEDS ORDERED: PCA LOCKBOX KEYS XX PRN (11:05)
[2018-04-27] MEDS ORDERED: NALOXONE HCL 0.4 MG/ML VIAL IVP PRN (11:05)
[2018-04-27] MEDS ORDERED: FLUSH 10 ML SYR IVP PRN (11:05)
[2018-04-27] MEDS ORDERED: BELLADONNA ALKALOIDS/OPIUM 30 MG SUPP PR PRN (11:05)
[2018-04-27] MEDS ORDERED: ZOLPIDEM TARTRATE 5 MG TAB PO PRN (11:05)
[2018-04-27] MEDS ORDERED: GLYCOPYRROLATE 0.2MG/ML 1 ML INJ IVP PRN (11:05)
--- NOTE | 2018-04-27 12:13 | OPERATIVE REPORT 1 ---
EVENT DATE: April 27, 2018 SURGEON: Dwayne Marie MD ANESTHESIOLOGIST: Mitul Soto MD ANESTHESIA: General PREOPERATIVE DIAGNOSIS Left inguinal hernia, probable both indirect and direct components. POSTOPERATIVE DIAGNOSES 1. Left inguinal hernia, both indirect and direct components. 2. Cord lipoma. PROCEDURE PERFORMED 1. Exploration of left groin area. 2. Left Bassini herniorrhaphy. 3. High ligation of large hernia sac. 4. Excisional biopsy of lipoma of the cord. DESCRIPTION OF PROCEDURE Under general anesthetic, the patient was prepped and draped in the supine position. The incision was made from the external ring area to the internal ring area. Tissues were incised down to the underlying external fascia. Bleeding was controlled with spot coagulation and 2-0 Chromic catgut ligatures. The external oblique was exposed and dissected medially and laterally off the cord area. The external oblique was incised along its fibers from the external to the internal ring area. The edges of the external oblique were grasped with hemostats. The underlying internal oblique was dissected from the underlying external oblique fascia. There was noted to be a large hernia attached to the cord that extended from the internal ring area all the way down into the mid left hue-scrotal area. The cord was freed from from the at the symphysis pubis and was isolated with a Pedro drain. The large sac was dissected free from the cord from its location in the left hemiscrotum all the way back to the deep internal ring area. The sac was high ligated with a pursestring suture with 0 Chromic catgut suture. Then a free-tie of #1 Chromic was placed approximately 2 mm cephalad to the transfixion suture. The wound was irrigated with double antibiotic solution. Bleeding appeared to be satisfactorily controlled. The testicle and cord were intact. I did not have to dissect the testicle from its attachments. The floor of the inguinal canal was weak and associated with direct hernia. The conjoint tendon was exposed and brought down to the shelving margin of Poupart's ligaments throughout its length from the external ring area to the internal ring area with #1 silk ligatures. This appeared to close the defect. The floor appeared to be intact and solid. The cord and testicle were replaced in their normal position. The wound was irrigated with double antibiotic solution. The external oblique was closed with 2-0 silk ligatures interrupted. The subcutaneous tissue was irrigated with double antibiotic solution. Bleeding appeared to be satisfactorily controlled. Of note, there was a lipoma of the cord that extended from the internal ring area to the external ring area. This was freed from its attachments on the cord and surrounding structures. It was high ligated at the internal ring area and tied off with 0 Chromic catgut ligature. The hernia sac of the lipoma was sent in a separate container to the pathologist for identification purposes. Subcutaneous tissue was reapproximated with 3-0 plain catgut. The skin was closed with running subcuticular 4-0 Vicryl. The wound was cleaned and dressed. Glue was applied to the incisional area. Steri-strips were applied after drying the glue. The dressing was applied as well as a scrotal supporter and #16 Bernardo was placed without any difficulty. Estimated blood loss was less than 100 cc. The patient was stable throughout the procedure and returned to the recovery room in satisfactory condition. This is a 61-year-old white male complaining of a large left hernia that is symptomatic with occasional pain and steadily enlarging. His CT of the abdomen, kidneys and pelvis shows a large left inguinal hernia with bowel contents extending into the scrotal area. Options were discussed with the patient pre-treatment. He was agreeable to further evaluation and therapy. See operative note for details, findings and treatment. The patient will be ready for discharge home in the a.m. if all is going well. His Bernardo will be removed in the a.m. Patient will be discharged home on Cipro, Pepcid, Motrin and Tylenol #3 therapy. Patient is to continue his usual medications. Patient will continue the scrotal support and ice as needed after discharge. Plan followup this following Tuesday in the office. Patient is given my phone number to contact me if he has any problems. DUNG
[2018-04-27] MEDS: HYDROmorphone PCA 6 MG/30 ML IV PRN (12:23)
[2018-04-27] MEDS: LR(*) 1000 ML BAG 1,000 ML IV PRN ×2 (12:25→22:41)
[2018-04-27] MEDS: LEVOFLOXACIN/D5W*500 MG/100 ML 100 ML IVPB SCH (12:33)
[2018-04-27] MEDS: GENTAMICIN/NS 80 MG/100 ML PB 100 ML IVPB SCH (15:32)
[2018-04-27] MEDS: NEOMYCIN/POLYMYX/BACITR OINT 1 PACKET TP SCH (21:13)
[2018-04-27] MEDS: FAMOTIDINE 20 MG TAB PO SCH (21:13)
[2018-04-27] MEDS: DOCUSATE SODIUM 100 MG CAP PO SCH (21:13)
[2018-04-28] MEDS: GENTAMICIN/NS 80 MG/100 ML PB 100 ML IVPB SCH ×3 (00:20→15:39)
[2018-04-28 03:23] VITALS: BP 120/69
[2018-04-28] MEDS: HYDROmorphone PCA 6 MG/30 ML IV PRN (07:47)
[2018-04-28 07:54] VITALS: BP 124/79
[2018-04-28] MEDS ORDERED: KETOROLAC 30 MG/ML VIAL IVP ONE (08:45)
[2018-04-28] MEDS: NEOMYCIN/POLYMYX/BACITR OINT 1 PACKET TP SCH ×2 (09:23→20:30)
[2018-04-28] MEDS: DOCUSATE SODIUM 100 MG CAP PO SCH ×2 (09:23→20:30)
[2018-04-28] MEDS: FAMOTIDINE 20 MG TAB PO SCH ×2 (09:23→20:46)
[2018-04-28] MEDS: LR(*) 1000 ML BAG 1,000 ML IV PRN (09:26)
[2018-04-28 11:06] VITALS: Ht 185.4 cm; Wt 109.3 kg
[2018-04-28 11:56] VITALS: BP 132/82
--- NOTE | 2018-04-28 12:29 | NUR ---
30mg toradol ordered once at this time- non admin for several reasons: patient incision is draining, pt states he doesn't know yet if he wants it. See Doctor notifications. Ultimately not given due to wound drainage and Flock verified not to give med
[2018-04-28] MEDS: LEVOFLOXACIN/D5W*500 MG/100 ML 100 ML IVPB SCH (13:43)
[2018-04-28 15:36] VITALS: BP 127/73
[2018-04-28 19:08] VITALS: BP 129/78
[2018-04-28] MEDS: APAP/HYDROCODONE 325/7.5 TAB PO PRN (20:31)
[2018-04-28 23:38] VITALS: BP 128/66
[2018-04-29] MEDS: GENTAMICIN/NS 80 MG/100 ML PB 100 ML IVPB SCH ×2 (00:22→08:28)
[2018-04-29] MEDS: APAP/HYDROCODONE 325/7.5 TAB PO PRN ×3 (00:30→11:33)
[2018-04-29 03:24] VITALS: BP 109/100
[2018-04-29 07:34] VITALS: BP 126/72
--- NOTE | 2018-04-29 07:47 | NUR ---
Discontinued by previous shifts nurse. Addendum: 04/29/18 at 0754 by MARYJANE TAM RN Amended: Links added.
[2018-04-29] MEDS: NEOMYCIN/POLYMYX/BACITR OINT 1 PACKET TP SCH (08:28)
[2018-04-29] MEDS: DOCUSATE SODIUM 100 MG CAP PO SCH (08:28)
[2018-04-29] MEDS: FAMOTIDINE 20 MG TAB PO SCH (08:28)
[2018-04-29] MEDS ORDERED: ASPIRIN 81 MG CHEW PO SCH (09:00)
[2018-04-29] MEDS ORDERED: BELLADONNA ALK/OPIUM 60MG SUPP PR PRN (09:40)
[2018-04-29] MEDS ORDERED: FAMO20TA28 PO (10:40)
[2018-04-29] MEDS ORDERED: IBUP800T37 PO (10:41)
[2018-04-29] MEDS ORDERED: DOCU-416 PO (10:42)
[2018-04-29] MEDS ORDERED: HYDR-654 PO (10:43)
[2018-04-29] MEDS ORDERED: CIPR-344 PO (10:43)
[2018-04-29] MEDS ORDERED: ASPI81TA94 PO (11:05)
[2018-04-29 11:29] VITALS: BP 124/69
--- NOTE | 2018-05-05 17:07 | DISCHARGE SUMMARY ---
ADMISSION DIAGNOSIS Left inguinal hernia. DISCHARGE DIAGNOSES 1. Left inguinal hernia, both indirect and direct components. 2. Lipoma of the cord. ASSOCIATED DISEASES See History and Physical. PROCEDURES 1. Exploration of left groin area. 2. Left hernia repair, a Bassini type repair. 3. High ligation of large hernia sac. 4. Excisional biopsy of left groin lipoma. CONDITION ON DISCHARGE Satisfactory. SUMMARY This is a 62-year-old white male complaining of a large left inguinal hernia with associated discomfort at times and has been enlarging over the past few years. Patient requests exploration and repair. That has been accomplished. See operative note for details. Patient has done well both intra- and postoperatively. He had some trouble with nausea, vomiting, swelling, and pain. He was slow ambulating. Also, the patient had had some bloody drainage that was addressed the day following surgery. Patient's wound is currently dry. Patient appears to be improving. His scrotal swelling is moderate, wearing a scrotal supporter and continuing his ice packs. PLAN Discharge home, to follow up this coming Tuesday in the office. Patient is to continue to wear his scrotal support at all times. Patient is to continue his ice packs for now. Activities are restricted to careful ambulation. Patient may shower as instructed. Patient will be discharged home on Cipro, Pepcid, Motrin, and Maynard therapy. Patient has my personal cell phone number if he has any trouble or issues. If he is not able to contact me, to go to the Emergency Room for evaluation and therapy. [facility] [place] [facility]ISION[facility]urtis
== END 2018-04-29 11:44 | disposition home or self-care (01) ==
LOC: OR 00:28 → OBSVTOIN 11:55 → MED 11:55 → INTOOBSV 11:55
DX: K40.90 Unilateral inguinal hernia, without obstruction or gangrene, not specified as recurrent (principal); C85.90 Non-Hodgkin lymphoma, unspecified, unspecified site; D17.6 Benign lipomatous neoplasm of spermatic cord; E78.5 Hyperlipidemia, unspecified; I27.20 Pulmonary hypertension, unspecified; Z86.718 Personal history of other venous thrombosis and embolism
CPT/HCPCS: 49505; 88302; 88304; G0378; J0690; J1100; J1170; J1580; J1956; J2001; J2250; J2405; J2704; J3010; J3490; J7050; J7120